=== PATIENT | female | born 1970 | race Caucasian/White ===

== ENCOUNTER 2016-05-16 13:19 | Observation (INO) | payer BC ==
--- NOTE | ~2016-05-16 | DS ---
Discharge Summary [facility] [address] [place]. [address] NAME: JIMENA PORRAS : 68 STATUS : DIS Ki PAT#: [id number] AGE: 45 ADM/REG DATE : 05/16/16 MR#: [id number] REPORT SERV DATE: 05/18/16 DICTATED BY: JR. GREEN WILLIAM JOHN DATE: 05/17/16 REPORT STATUS : Draft TRANSCRIBED BY: SHARRI DATE: 05/17/16 ADMISSION DATE: 05/16/2016 DISCHARGE DATE: 05/17/2016 DISCHARGE DIAGNOSES: 1. Transient ischemic attack. 2. Hypertension. 3. Cough. 4. Obesity. OPERATIONS, PROCEDURES, AND TREATMENTS: Include: 1. CT of the brain done 05/16/2016, which was unremarkable. 2. Chest x-ray done 05/16/2016, which showed no radiographic evidence of acute process. 3. CT angiogram of the neck done 05/16/2016, which was unremarkable. There were small amounts plaque in the ICA origins without stenosis. CT of the neck was otherwise unremarkable. There is 1 cm left thyroid nodule. 4. CT of the brain with and without contrast on 05/17/2016 was unremarkable. There are no acute intracranial pathology identified. 5. Thyroid ultrasound done 05/17/2016 was negative and echocardiogram done 05/17/2016 showed a poor study with overall normal systolic and diastolic function with ejection fraction of 55-60%. DISCHARGE MEDICATIONS: Include: 1. Aspirin 81 mg orally daily. 2. Lisinopril 10 mg orally daily. 3. Lipitor 80 mg orally daily. HOSPITAL COURSE: The patient was a 45-year-old female, presented to emergency room with left facial arm and arm weakness and tingling. She had a history of Ashley's syndrome of uncertain etiology. She had palpitations, came to the emergency room for these symptoms where her systolic blood pressure was over 200. On initial exam, blood pressure 222/114, down to 155/80 with intervention; temperature 98.6; heart rate 93; respiratory rate 16. Exam was remarkable for symmetrical smile with a midline tongue. Extraocular motions intact with anisocoria due to the Ashley's syndrome. Cranial nerves were otherwise intact. Lab and CT are detailed above. The patient was admitted to the Clinical Decision Unit for transient ischemic attack. She underwent echocardiogram which was unremarkable, CT angiogram of the neck and head that was unremarkable, thyroid ultrasound that was normal, had a thyroid-stimulating hormone that was normal, CT of the brain that was unremarkable, and test that was negative. She will be resumed on her TERRI inhibitor at discharge. I discussed this with Neurology. They feel it is reasonable to discharge the patient home on aspirin and statin. The patient will be discharged home today 05/17/2016 in good condition. She will follow up her primary care provider, Milly Yap, in two to four weeks. DIET: Regular. Discharge Summary [address] [place]. [address] NAME: JIMENA PORRAS : 68 STATUS : DIS Ki PAT#: [id number] AGE: 45 ADM/REG DATE : 05/16/16 MR#: [id number] REPORT SERV DATE: 05/18/16 DICTATED BY: JR. GREEN WILLIAM JOHN DATE: 05/17/16 REPORT STATUS : Draft TRANSCRIBED BY: SHARRI DATE: 05/17/16 ACTIVITY: As tolerated. WRodriguezF/SHARRI Teddy Green Jr, MD / [id number] CC: Teddy Green Jr, MD Suzanne Storey, M.D.
--- NOTE | ~2016-05-16 | HP ---
History And Physical [address] [address] [facility] [place]. [address] NAME: JIMENA PORRAS : 68 STATUS : ADM Ki PAT#: [id number] AGE: 45 ADM/REG DATE : 05/16/16 MR#: [id number] REPORT SERV DATE: 05/16/16 DICTATED BY: BLADIMIR RAND DATE: 05/16/16 REPORT STATUS : Draft TRANSCRIBED BY: MODKim DATE: 05/16/16 DATE OF ADMISSION: 05/16/2016 CHIEF COMPLAINT: Weakness and numbness of left face, left arm, and tingling occurred approximately noon today. HISTORY OF PRESENT ILLNESS: The patient is a 45-year-old female with past medical history of hypertension, on single-dose therapy; obesity; and Ashley's syndrome of unknown etiology in the past with resolved symptoms, who reports she has had on and off episodes of mild palpitations at times with episodes happening today around noon, which resulted in numbness-type feeling and irregularity-type feeling of left face and left arm without radiation. No chest pain. No nausea, vomiting, or diarrhea. But once the symptoms occurred, the patient reports that she needed to get further evaluation. The patient arrived to the emergency room for possible stroke protocol, initiated and workup by Neurology, and code stroke was initiated, non-tPA requirements, and had been evaluated by Neurology recommending further evaluation. Symptoms have been constant in moderate severity without pain or pressure encompassing left face and left arm. No vomiting. Possible nausea symptoms, but these have all resolved. No shortness of breath, fever, chills, diarrhea, or constipation. Has not had any recent illnesses. There are no worsening or relieving symptoms. Symptoms are still present, but have improved since initial presentation. The patient did have quite accelerated hypertension with systolics over 200 on arrival. The patient does report that she does not routinely monitor her blood pressures, but did note that she was quite anxious at presentation. The patient reports that she has had history of Ashley syndrome, has had workup and was also sent to [facility] because she is so claustrophobic from MRI in past. No cause for Ashley syndrome has been noted per the patient at this time. The patient reports she is only hungry and otherwise feels improved but still nervous about symptoms. The patient does report she also has a very significant cardiac history in her family, although she denies any at this time. REVIEW OF SYSTEMS: GENERAL: Mild numbness and slight weakness. No fever or chills. EYES: No discharge or pain or visual changes. ENT: No hearing loss, congestion, or sinus drainage. NEURO: No headache or confusion, but did have numbness and weakness of the left face and hand. SKIN: No rashes or bruising. RESPIRATORY: No shortness of breath, dyspnea on exertion reported. CV: No chest pain. The patient did have mild occasional palpitations. GI: No vomiting. Possible mild nausea, but this is also resolved. No diarrhea or constipation. : No dysuria or hematuria. MUSCULOSKELETAL: No myalgias and arthralgias. ENDO: No fatigue or polyuria. HEME: No bleeding or bruising. IMMUNOLOGIC: No rhinorrhea. PSYCH: Does have anxiety, but no confusion. History And Physical [address] [address] NAME: JIMENA PORRAS : 68 STATUS : ADM Ki PAT#: [id number] AGE: 45 ADM/REG DATE : 05/16/16 MR#: [id number] REPORT SERV DATE: 05/16/16 DICTATED BY: BLADIMIR RAND DATE: 05/16/16 REPORT STATUS : Draft TRANSCRIBED BY: SHARRI DATE: 05/16/16 PAST MEDICAL HISTORY: Hypertension, Ashley's syndrome. PAST SURGICAL HISTORY: Hysterectomy, tubal surgery, three knee surgeries, Lap-Band with complications and subsequent deflatment, gallbladder surgery and tonsils. 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 No smoking alcohol or illicits. FAMILY HISTORY: Diabetes in siblings and significant heart disease on maternal side including premature coronary artery disease. ALLERGIES: NO KNOWN DRUG ALLERGIES WITH POSSIBILITY OF LISINOPRIL AND TERRI INHIBITOR COUGH. PHYSICAL EXAMINATION: VITAL SIGNS: Her blood pressure initially 222/114 down to 155/80, temperature 98.6, pulse 93, respirations 16, O2 saturations 98% on room air. GENERAL: Obese, anxious, improved, reports improved after has arrived. EYES: No scleral icterus. EOMI. ENT: Nares patent. Tongue midline. RESPIRATORY: Clear to auscultation. No wheezes, rales. CV: Regular rate. No rubs or gallops. GI: Soft, nontender, and nondistended. Bowel sounds positive. MUSCULOSKELETAL: Moves all extremities x4. : Deferred. SKIN: Warm and dry. LYMPH: No cervical or supraclavicular lymphadenopathy. HEME: No bleeding or bruising. NEURO: Symmetrical smile. Tongue midline. Eyes, EOMI. No scleral icterus. No nystagmus. No drift. Does have right slightly greater than the left strength, approximately 4+ on the left side and hand and 5 on right side hand. Gait not tested at this time. Sensation is grossly intact in upper and lower extremities. Normal vocal valentin. Cranial nerves 2 through 12 grossly intact. PSYCH: Appropriate mood and affect. Although, mildly anxious appropriately. EKG shows ventricular rate of 78, normal sinus rhythm. QTc of 430. No acute dynamic ST changes. HOME MEDICATIONS: Lisinopril 10 mg daily. ALLERGIES: AGAIN NO KNOWN DRUG ALLERGIES. PORTABLE CHEST, NEGATIVE; CTA, NEGATIVE; CONTRAST OF THE BRAIN, SMALL MILD PLAQUE IN THE ICA WITH NO STENOSIS, 1 CM LEFT THYROID NODULE. STROKE PROTOCOL NEGATIVE. CMP GROSSLY WITHIN NORMAL LIMITS. TROPONIN NEGATIVE. CBC GROSSLY WITHIN NORMAL LIMITS, NEGATIVE. ASSESSMENT: 1. Transient ischemic attack. History And Physical [address] [address] NAME: JIMENA PORRAS : 68 STATUS : ADM Ki PAT#: [id number] AGE: 45 ADM/REG DATE : 05/16/16 MR#: [id number] REPORT SERV DATE: 05/16/16 DICTATED BY: BLADIMIR RAND DATE: 05/16/16 REPORT STATUS : Draft TRANSCRIBED BY: SHARRI DATE: 05/16/16 2. Accelerated hypertension. 3. Thyroid enlargement. 4. Obesity. 5. Claustrophobia. 6. Cough. PLAN: 1. For TIA, CT negative. We will check MRI and MRA with cam Jaime. The patient reports significant claustrophobia and we will defer to neurology guidance if the patient unable to tolerate MRA. Non-tPA candidate and has been evaluated in the emergency room. We will additionally check thyroid. Symptoms also concerning secondary to accelerated hypertension as possible causes of symptoms. The patient additionally has history of Ashley syndrome which has also resolved in the past, but no etiology of this. The patient has negative chest x-ray at this time. 2. Hypertension, improved with labetalol. We will change lisinopril secondary to cough. Had HCTZ and additional p.r.n. Allow for permissive hypertension in the setting of possible acute stroke or CVA. 3. Thyroid enlargement. Check TSH, free T4, thyroid ultrasound. 4. Obesity as history of Lap-Band. Check B12 folate. 5. Claustrophobia p.r.n. For MRI, however, the patient may refuse due to claustrophobia. 6. Cough. Change lisinopril to PPI. The patient has component of both possible GERD, but additionally spontaneous cough episodes which could be related to lisinopril. We will change to losartan at this time. All questions were answered with the patient family at bedside. DISPOSITION: Pending. FINDINGS: From above. DDN/MODL Bladimir Rand MD / [id number] CC: Teddy Green Jr, MD Suzanne Storey, M.D.
[~2016-05-16 13:19] MED LIST: ZESTORETIC1 TAB PO
[2016-05-16 13:37] LABS: BASOPHILS 0.4 %; BASOPHILS ABSOLUTE 0.03 10/3/uL (0.0-0.16); EOSINOPHILS 0.9 %; EOSINOPHILS ABSOLUTE 0.07 10/3/uL (0.0-0.53); ER CBC TAT 0 Hrs 03 Mins; HEMATOCRIT 43.7 % (36.0-48.0); HEMOGLOBIN 14.7 g/dL (12.0-16.0); IMMATURE GRANULOCYTES 0.1 %; IMMATURE GRANULOCYTES ABSOLUTE 0.01 10/3/uL (0.0-0.11); LYMPHOCYTES ABSOLUTE 2.21 10/3/uL (0.67-4.30); MANUAL DIFF NO %; MEAN CORPUS HGB CONC 33.6 g/dL (32.0-36.0); MEAN CORPUSCULAR VOLUME 92.2 fL (80-100); MEAN PLATELET VOLUME 10.7 fL (9.2-13.0); MONOCYTES 7.9 %; NEUTROPHILS 61.7 %; NEUTROPHILS ABSOLUTE 4.69 10/3/uL (2.02-8.40); PLATELET COUNT 244 10/3/uL (150-400); RED CELL COUNT 4.74 10/6/uL (4.0-5.6); WHITE BLOOD CELLS 7.6 10/3/uL (4.5-10.5)
[2016-05-16 13:45] LABS: PARTIAL THROMBO TIME 26.6 SEC (22.5-37.2)
[2016-05-16 13:46] LABS: INTERNATIONAL NORMAL RATI 0.9 UNITS (-); PROTIME (NOT ORD) 12.4 SEC (12.0-14.5)
[2016-05-16 13:54] LABS: ALBUMIN 3.7 G/DL (3.5-5.0); ALKALINE PHOSPHATASE 52 U/L (45-117); BUN (BLOOD UREA NITROGEN) 10 MG/DL (6-23); CALCIUM, SERUM 8.8 MG/DL (8.5-10.4); CHLORIDE, SERUM 105 MMOL/L (96-112); CO2 (CARBON DIOXIDE) 27 MMOL/L (24-34); CREATININE 0.77 MG/DL (0.55-1.02); GFR AFRICAN AMERICAN 107 ML/MIN (>=60); GFR NON AFRICAN AMERICAN 93 ML/MIN (>=60); GLUCOSE, SERUM 85 MG/DL (60-99); SGPT(ALT) 19 U/L (5-65); SODIUM, SERUM 140 MMOL/L (135-148); TOTAL BILIRUBIN 0.5 MG/DL (0-1.2); TOTAL PROTEIN 7.5 G/DL (6.0-8.5); TROPONIN I <0.02 NG/ML (<0.05)
[2016-05-16 13:55] LABS: GLOBULIN 3.8 G/DL (2.5-4.1); SGOT(AST) 12 U/L (5-40)
[2016-05-16] MEDS ORDERED: PRIN10 PO (14:07)
[2016-05-16 19:16] LABS: FREE T4 1.32 NG/DL (0.76-1.46)
[2016-05-16 19:19] LABS: FOLATE 7.5 NG/ML (>5.2)
[2016-05-16 22:46] LABS: CPK 28 U/L (0-200); HCG SERUM QUANTITATIVE <1.0 IU/L (0-6); TROPONIN I <0.02 NG/ML (<0.05)
[2016-05-16 22:47] LABS: CK-MB < 0.5 NG/ML
[2016-05-17 06:11] LABS: CHOL/HDL RATIO(NOT ORDER) 2.9 (0-5); CHOLESTEROL 216 MG/DL (< 200); CPK 26 U/L (0-200); HDL CHOLESTEROL 75 MG/DL (> 49); LDL CHOLESTEROL 124 MG/DL (< 130); NON-HDL CHOLESTEROL 141 MG/DL (< 160); PHOSPHORUS, SERUM 3.5 MG/DL (2.5-4.5); TRIGLYCERIDE 86 MG/DL (< 150); TROPONIN I <0.02 NG/ML (<0.05)
[2016-05-17 06:14] LABS: CK-MB < 0.5 NG/ML
[2016-05-17] MEDS ORDERED: LIPITOR80 MG PO (15:46)
[2016-05-17] MEDS ORDERED: ASAB PO (15:47)
[2016-05-23 09:18] LABS: CREATININE 0.8 MG/DL (0.55-1.02)
== END 2016-05-17 18:09 | disposition home or self-care (01) ==
LOC: ER 13:19 → CDU1 16:43
PROVIDERS: Emergency Medicine; Internal Medicine; Student in an Organized Health Care Education/Training Program
DX: G45.9 Transient cerebral ischemic attack, unspecified (principal); I10 Essential (primary) hypertension; E66.9 Obesity, unspecified; E04.9 Nontoxic goiter, unspecified; F40.240 Claustrophobia; R05 Cough; Z79.82 Long term (current) use of aspirin; Z79.899 Other long term (current) drug therapy
CPT/HCPCS: 36415; 70450; 70470; 70496; 70498; 71010; 76536; 80053; 80061; 82550; 82553; 82607; 82746; 82962; 83036; 83735; 84100; 84439; 84443; 84484; 84702; 85025; 85610; 85730; 86850; 86900; 86901; 93005; 96372; 96374; 97165-GO; 99291; A9270-GY; C8929; G0378; Q9957; Q9967